=== PATIENT | female | born 1990 | race Two or more races ===

== ENCOUNTER 2022-08-20 21:07 | Emergency (ER) | payer OTHER ==
[~2022-08-20] VITALS: Ht 165.1 cm; Wt 90.7 kg
== END 2022-08-21 04:13 | disposition home or self-care (01) ==
LOC: ER 21:07
DX: R10.31 Right lower quadrant pain (principal); N28.1 Cyst of kidney, acquired

== ENCOUNTER 2022-08-24 19:51 | Emergency (ER) | payer OTHER ==
[~2022-08-24] VITALS: Ht 165.1 cm; Wt 90.7 kg
== END 2022-08-25 02:53 | disposition home or self-care (01) ==
LOC: ER 19:51
DX: R10.11 Right upper quadrant pain (principal)

== ENCOUNTER 2023-05-04 12:33 | Emergency (ER) | payer OTHER ==
[~2023-05-04] VITALS: Ht 165.1 cm; Wt 90.7 kg
[2023-05-04 17:55] LABS: URINE APPEARANCE Clear; URINE BILIRRUBIN Negative (NEGATIVE); URINE BLOOD Negative; URINE COLOR Yellow; URINE GLUCOSE Negative (NEGATIVE); URINE LEUKOCYTE Negative; URINE NITRATE Negative; URINE PROTEIN Negative (NEGATIVE); URINE UROBILINOGEN 0.2 E.U./dl
[2023-05-04 17:58] LABS: URINE BACTERIA 1394.3 uL (0.0-1933); URINE EPITHELIAL CELLS 8.3 uL (0.0-38.8)
[2023-05-04 18:26] LABS: HEMATOCRIT 37.6 % (36.0-45.00); HEMOGLOBIN 12.4 g/dL (12.0-15.00); MEAN CELL VOLUME 80.6 fL (80.00-100.00); MEAN CORPUSCULAR HEMOGLOBIN 26.6 pg (27.00-32.0); MEAN CORPUSCULAR HGB CONC 33.1 g/dl (32.0-36.0); PLATELET COUNT 151 K/uL (150-450); RED BLOOD COUNT 4.66 M/uL (4.00-6.00); RED CELL DISTRIBUTION WIDTH 16.2 % (11.5-14.5)
[2023-05-04 18:27] LABS: URINE RBC 1.5 uL (0.0-20.8)
== END 2023-05-04 19:46 | disposition home or self-care (01) ==
LOC: ER 12:34
DX: Z34.90 Encounter for supervision of normal pregnancy, unspecified, unspecified trimester (principal); B34.9 Viral infection, unspecified; R50.9 Fever, unspecified; Z20.822 Contact with and (suspected) exposure to COVID-19

== ENCOUNTER 2023-07-05 09:06 | Outpatient (CLI) | payer OTHER | END 2023-07-05 09:12 | disposition home or self-care (01) | LOC: PRENATAL 09:06 | PROVIDERS: ATTEND Obstetrics & Gynecology Maternal & Fetal Medicine | DX: O35.9XX0 Maternal care for (suspected) fetal abnormality and damage, unspecified, not applicable or unspecified (principal); O35.3XX0 Maternal care for (suspected) damage to fetus from viral disease in mother, not applicable or unspecified; O44.00 Complete placenta previa NOS or without hemorrhage, unspecified trimester; Z3A.19 19 weeks gestation of pregnancy ==

== ENCOUNTER 2023-10-16 09:00 | Outpatient (CLI) | payer OTHER | END 2023-10-16 09:01 | disposition home or self-care (01) | LOC: PRENATAL 09:00 | PROVIDERS: ATTEND Obstetrics & Gynecology Maternal & Fetal Medicine | DX: O26.849 Uterine size-date discrepancy, unspecified trimester (principal); O36.8199 Decreased fetal movements, unspecified trimester, other fetus; Z3A.34 34 weeks gestation of pregnancy ==

== ENCOUNTER 2023-11-08 13:30 | Inpatient (IN) | payer OTHER ==
[~2023-11-08] VITALS: Ht 165.1 cm; Wt 95.7 kg
[2023-11-12] MEDS ORDERED: PRENATABS RX T1 EACH PO (22:14)
[2023-11-12] MEDS ORDERED: RINGERS SOLUTION,LACTATED 1,000 ML IV SCH (22:45)
[2023-11-12 23:25] LABS: URINE APPEARANCE Clear; URINE BILIRRUBIN Negative (NEGATIVE); URINE BLOOD Negative; URINE COLOR Yellow; URINE GLUCOSE Negative (NEGATIVE); URINE KETONE Negative (NEGATIVE); URINE LEUKOCYTE Trace; URINE NITRATE Negative; URINE PROTEIN Negative (NEGATIVE); URINE UROBILINOGEN 0.2 E.U./dl
[2023-11-12 23:27] LABS: HEMATOCRIT 33.3 % (36.0-45.00); HEMOGLOBIN 11.1 g/dL (12.0-15.00); MEAN CELL VOLUME 80.9 fL (80.00-100.00); MEAN CORPUSCULAR HGB CONC 33.3 g/dl (32.0-36.0); PLATELET COUNT 298 K/uL (150-450); RED BLOOD COUNT 4.12 M/uL (4.00-6.00); RED CELL DISTRIBUTION WIDTH 18.7 % (11.5-14.5)
[2023-11-12 23:45] LABS: URINE BACTERIA 215.3 uL (0.0-1933); URINE EPITHELIAL CELLS 7.7 uL (0.0-38.8); URINE RBC 3.9 uL (0.0-20.8); URINE WBC 14.9 uL (0.0-23.2)
[2023-11-12 23:55] LABS: ALBUMIN 2.9 gm/dL (3.4-5.0); BILIRUBIN TOTAL 0.23 mg/dL (0.3-1.2); CALCIUM 8.8 mg/dL (8.5-10.1); CREATININE SERUM 0.54 mg/dL (0.55-1.02); GFR 132.56; GLOBULINA 3.4 G/DL (2.4-3.5); POTASSIUM 4.03 mEq/L (3.5-5.1); TOTAL PROTEIN 6.3 gm/dL (6.4-8.2)
[2023-11-13 00:46] LABS: INR 0.97; PARTIAL THROMBOPLASTIN TIME 30.8 SECONDS (22.0-34.0); PROTHROMBIN TIME 10.2 SECONDS (9.0-11.5)
[2023-11-13 01:01] LABS: URINE CAST 0.15 uL (0.0-1.40); URINE CRYSTALS MODERATE /HPF
[2023-11-13] MEDS ORDERED: MISOPROSTOL 25 MCG TABLET ONE (17:43)
[2023-11-13] MEDS ORDERED: hydrOXYzine PAMOATE 50 MG CAPSULE PO PRN (18:00)
[2023-11-13] MEDS ORDERED: MISOPROSTOL 25 MCG TABLET VAG ONE (18:00)
[2023-11-14] MEDS ORDERED: MISOPROSTOL 25 MCG TABLET ONE (07:17)
[2023-11-14] MEDS ORDERED: MISOPROSTOL 25 MCG TABLET VAG ONE ×3 (07:30→14:30)
[2023-11-14] MEDS ORDERED: ERYTHROMYCIN BASE 1 GM TUBE OP ONE (18:57)
[2023-11-14] MEDS ORDERED: OXYTOCIN 10 UNITS/ML VIAL ONE (18:57)
[2023-11-14] MEDS ORDERED: CEFOXITIN SODIUM 2,000 MG VIAL IV ONE (19:20)
[2023-11-14] MEDS ORDERED: MEPERIDINE HCL/PF 50 MG/ML VIAL IV SCH (19:59)
[2023-11-14] MEDS ORDERED: CHLORHEXIDINE GLUCONATE 120 ML BOTTLE TP SCH (20:00)
[2023-11-14] MEDS ORDERED: ERYTHROMYCIN BASE 1 GM TUBE OP SCH (20:00)
[2023-11-14] MEDS ORDERED: OXYTOCIN 1,000 ML IV SCH (20:00)
[2023-11-14] MEDS ORDERED: PROMETHAZINE HCL 50 MG/ML AMPUL IM SCH (20:00)
[2023-11-14] MEDS ORDERED: RINGERS SOLUTION,LACTATED 1,000 ML IV SCH (20:00)
[2023-11-14] MEDS ORDERED: SIMETHICONE 125 MG CAPSULE PO SCH (21:00)
[2023-11-15] MEDS ORDERED: OXYTOCIN 10 UNITS/ML VIAL ONE (01:27)
[2023-11-15] MEDS ORDERED: ONDANSETRON HCL 2 MG/ML VIAL ONE (01:37)
[2023-11-15 02:25] LABS: HEMATOCRIT 32.6 % (36.0-45.00); MEAN CELL VOLUME 80.1 fL (80.00-100.00); MEAN CORPUSCULAR HGB CONC 32.8 g/dl (32.0-36.0); PLATELET COUNT 270 K/uL (150-450); RED BLOOD COUNT 4.07 M/uL (4.00-6.00); RED CELL DISTRIBUTION WIDTH 18.4 % (11.5-14.5)
[2023-11-15 02:26] LABS: HEMOGLOBIN 10.7 g/dL (12.0-15.00); MEAN CORPUSCULAR HEMOGLOBIN 26.2 pg (27.00-32.0)
[2023-11-15] MEDS ORDERED: KETOROLAC TROMETHAMINE 10 MG TABLET PO PRN (09:15)
[2023-11-15] MEDS ORDERED: ACETAMINOPHEN WITH CODEINE 1 UDTAB TABLET PO PRN (09:15)
[2023-11-17] MEDS ORDERED: KETO10TA2 PO (11:31)
== END 2023-11-17 12:44 | disposition home or self-care (01) | DRG 788 ==
LOC: LDR 11-12 21:30 → O/R 11-14 20:11 → OB/GYN 11-14 20:34
PROVIDERS: ADMIT Obstetrics & Gynecology; ATTEND Obstetrics & Gynecology
PROC: 4A1HXCZ Monitoring of Products of Conception, Cardiac Rate, External Approach (ICD-10-PCS; 2023-11-12)
PROC: 3E0P7VZ Introduction of Hormone into Female Reproductive, Via Natural or Artificial Opening (ICD-10-PCS; 2023-11-13)
PROC: 3E033VJ Introduction of Other Hormone into Peripheral Vein, Percutaneous Approach (ICD-10-PCS; 2023-11-14)
PROC: 10D00Z1 Extraction of Products of Conception, Low, Open Approach (ICD-10-PCS; principal; 2023-11-14 20:00)
DX: O61.0 Failed medical induction of labor (principal); O36.8130 Decreased fetal movements, third trimester, not applicable or unspecified; O62.2 Other uterine inertia; Z3A.38 38 weeks gestation of pregnancy; Z37.0 Single live birth; Z20.822 Contact with and (suspected) exposure to COVID-19

== ENCOUNTER → 2025-01-19 09:27 | Outpatient (CLI) | payer OTHER ==
[~2025-01-19 09:27] MED LIST: KETO10TA2 PO; PRENATABS RX T1 EACH PO
== END | disposition home or self-care (01) ==
LOC: PRENATAL 09:27
PROVIDERS: ATTEND Obstetrics & Gynecology Maternal & Fetal Medicine
DX: O44.00 Complete placenta previa NOS or without hemorrhage, unspecified trimester (principal); O34.219 Maternal care for unspecified type scar from previous cesarean delivery; Z3A.20 20 weeks gestation of pregnancy